=== PATIENT | female | born 1995 | race Caucasian/White ===

== ENCOUNTER 2018-10-23 23:42 | Emergency (ER) | payer SELFPAY ==
[~2018-10-23] VITALS: Ht 165.1 cm; Wt 49.9 kg
[~2018-10-23 23:42] MED LIST: LAMICTAL25 MG PO; MOTRIN600 MG PO; PHENERGAN12.5 M1 PO; ULTRAM50 MG PO
[2018-10-24] MEDS ORDERED: BROMFED DM COU118 M2 PO (00:47)
[2018-10-24] MEDS ORDERED: MEDROL DOSEPAK4 MG PO (00:47)
== END 2018-10-24 01:14 | disposition home or self-care (01) ==
LOC: ED 23:42
DX: J40 Bronchitis, not specified as acute or chronic (principal)

== ENCOUNTER 2018-12-21 22:07 | Emergency (ER) | payer SELFPAY ==
[~2018-12-21] VITALS: Ht 165.1 cm; Wt 52.2 kg
--- NOTE | ~2018-12-21 | EKG ---
[place], [place] ELECTROCARDIOGRAM REPORT NAME: TUAN WEINSTEIN UNIT #: [id number] ROOM: DOCTOR: EPIPHANY DRAFT REPORT BIRTHDATE: [birth year] [facility] Test Date: 2018-12-22 Test Time: 14:14:59 Pat Name: TUAN WEINSTEIN Department: Room: Gender: F Structural Designer: Stephanie Padron : 1995 Requested By: MARYCRUZ CHAPIN Order Number: [id number] Reading MD: Martell Brown MD Measurements Intervals [place] Rate: 60 P: 62 VT: 107 QRS: 75 QRSD: 81 T: 70 QT: 389 QTc: 389 Interpretive Statements Sinus rhythm Short VT interval Electronically Signed On 12-24-2018 7:13:52 PDT by Martell Brown MD CM:EKGRPT:ELECTROCARDIOGRAM REPORT [id number] MARYCRUZ CHAPIN MD EPIPHANY DRAFT REPORT MARYCRUZ CHAPIN MD
[~2018-12-21 22:07] MED LIST changes: +BROMFED DM COU118 M2 PO; +MEDROL DOSEPAK4 MG PO
[2018-12-21 22:59] LABS: BASO % 0.4 % (0.0-1.0); EOS # 0.1 10*3/uL (0.0-0.4); EOS % 1.1 % (1.0-4.0); HEMATOCRIT 42.4 % (37.0-47.0); LYMPH # 2.4 10*3/uL (1.3-4.4); LYMPH % 29.6 % (27.0-41.0); MEAN CELL VOLUME 92.8 fl (81.0-99.0); MEAN CORPUSCULAR HGB 30.6 pg (27.0-31.0); MEAN PLATELET VOLUME 11.7 fl (9.6-12.3); MONO # 0.4 10*3/uL (0.1-1.0); MONO % 5.3 % (3.0-9.0); NEUT # 5.1 10*3/uL (2.3-7.9); NEUT % 63.5 % (47.0-73.0); PLATELET COUNT AUTOMATED 226 10*3/uL (130-400); RED BLOOD COUNT 4.57 10*6/uL (4.10-5.10); RED CELL DISTRI WIDTH 12.9 % (0-14.5)
[2018-12-21 23:15] LABS: BILIRUBIN NEGATIVE (NEGATIVE); BLOOD NEGATIVE (NEGATIVE); CLARITY CLEAR (CLEAR); COLOR YELLOW (YELLOW); GLUCOSE NEGATIVE (NEGATIVE); KETONE NEGATIVE (NEGATIVE); LEUKO ESTERASE TRACE (NEGATIVE); NITRITE NEGATIVE (NEGATIVE); UROBILINOGEN 0.2 E.U./dl (0.2-1.0)
[2018-12-21 23:19] LABS: ALBUMIN 3.6 gm/dl (3.1-4.5); ALKALINE PHOSPHATASE 73 U/L (45-117); BUN 5 mg/dl (7-24); CHLORIDE 108 mmol/L (98-107); CREATININE 0.69 mg/dL (0.55-1.02); POTASSIUM 3.8 mmol/L (3.5-5.1); SGOT/AST 15 IU/L (3-35); SGPT/ALT 17 U/L (12-78); SODIUM 143 mmol/L (136-145); TOTAL PROTEIN 7.1 gm/dL (6.4-8.2)
[2018-12-21 23:24] LABS: URINE AMPHETAMINES < 1000 (1000ng/ml); URINE BARBITURATES < 200 (200ng/ml); URINE BENZODIAZEPINES > 200 (200ng/ml); URINE CANNABINOIDS (THC) < 50 (50ng/ml); URINE COCAINE < 300 (300ng/ml); URINE METHADONE < 300 (300ng/ml); URINE OPIATES < 300 (300ng/ml)
[2018-12-21 23:26] LABS: URINE PHENCYCLIDINE < 25 (25ng/ml)
[2018-12-21 23:26] LABS: ACETAMINOPHEN (TYLENOL) < 5.0 ug/ml (10-30); ETHYL ALCOHOL < 3.0 mg/dl (<3)
[2018-12-21 23:29] LABS: BACTERIA TRACE; EPITHELIAL CELLS 25-30
== END 2018-12-23 00:46 | disposition home health service (06) ==
LOC: ED 22:07
PROVIDERS: Emergency Medicine Emergency Medical Services
DX: F32.9 Major depressive disorder, single episode, unspecified (principal)

== ENCOUNTER 2019-10-23 09:30 | Emergency (ER) | payer OTHER ==
[~2019-10-23] VITALS: Ht 165.1 cm; Wt 53.5 kg
[2019-10-23] MEDS ORDERED: ZITHROMAX250 MG PO (11:43)
[2019-10-23] MEDS ORDERED: ATARAX,VISTARIL50 MG PO (11:44)
== END 2019-10-23 11:50 | disposition home or self-care (01) ==
LOC: ED 09:30
DX: F41.9 Anxiety disorder, unspecified (principal); Z20.2 Contact with and (suspected) exposure to infections with a predominantly sexual mode of transmission; F31.9 Bipolar disorder, unspecified

== ENCOUNTER → 2020-02-27 | Outpatient (CLI) | payer OTHER ==
[~2020-02-27] MED LIST changes: +ATARAX,VISTARIL50 MG PO; +ZITHROMAX250 MG PO
== END ==
LOC: US 08:30
DX: N63.10 Unspecified lump in the right breast, unspecified quadrant (principal)

== ENCOUNTER 2020-08-29 15:59 | Emergency (ER) | payer OTHER ==
[~2020-08-29] VITALS: Wt 53.5 kg
== END 2020-08-29 18:38 | disposition short-term general hospital (02) ==
LOC: ED 15:59
DX: S02.831A Fracture of medial orbital wall, right side, initial encounter for closed fracture (principal); F17.200 Nicotine dependence, unspecified, uncomplicated; W18.39XA Other fall on same level, initial encounter; Y93.89 Activity, other specified; Y92.89 Other specified places as the place of occurrence of the external cause; Y99.8 Other external cause status

== ENCOUNTER 2020-09-11 21:15 | Emergency (ER) | payer OTHER ==
[~2020-09-11] VITALS: Ht 165.1 cm; Wt 53.5 kg
== END 2020-09-12 00:09 | disposition home or self-care (01) ==
LOC: ED 21:15
DX: S00.83XA Contusion of other part of head, initial encounter (principal); Y08.89XA Assault by other specified means, initial encounter; Y93.89 Activity, other specified; Y92.89 Other specified places as the place of occurrence of the external cause; Y99.8 Other external cause status

== ENCOUNTER 2020-09-24 03:34 | Emergency (ER) | payer OTHER ==
[~2020-09-24] VITALS: Ht 170.1 cm; Wt 59.0 kg
== END 2020-09-24 04:54 | disposition short-term general hospital (02) ==
LOC: ED 03:34
DX: S81.831A Puncture wound without foreign body, right lower leg, initial encounter (principal); W34.09XA Accidental discharge from other specified firearms, initial encounter; Y93.89 Activity, other specified; Y92.89 Other specified places as the place of occurrence of the external cause; Y99.8 Other external cause status

== ENCOUNTER 2021-03-27 13:31 | Emergency (ER) | payer OTHER ==
[~2021-03-27] VITALS: Ht 165.1 cm; Wt 54.9 kg
[2021-03-27] MEDS ORDERED: PROVENTIL HFA6.7 GM INH (14:35)
[2021-03-27] MEDS ORDERED: AMOXICILLIN500 M2 PO (14:35)
== END 2021-03-27 14:38 | disposition home or self-care (01) ==
LOC: ED 13:31
DX: O99.511 Diseases of the respiratory system complicating pregnancy, first trimester (principal); J06.9 Acute upper respiratory infection, unspecified; Z3A.01 Less than 8 weeks gestation of pregnancy

== ENCOUNTER 2022-02-21 21:30 | Emergency (ER) | payer OTHER ==
[~2022-02-21] VITALS: Ht 165.1 cm; Wt 59.0 kg
[~2022-02-21 21:30] MED LIST changes: +AMOXICILLIN500 M2 PO; +PROVENTIL HFA6.7 GM INH
== END 2022-02-21 22:04 | disposition home or self-care (01) ==
LOC: ED 21:30
DX: K21.9 Gastro-esophageal reflux disease without esophagitis (principal)

== ENCOUNTER 2022-04-30 17:33 | Emergency (ER) | payer OTHER ==
[~2022-04-30] VITALS: Wt 49.9 kg
[2022-04-30 18:12] LABS: BASO % 0.4 % (0.0-1.0); EOS # 0.1 10*3/uL (0.0-0.4); EOS % 1.2 % (1.0-4.0); HEMATOCRIT 42.5 % (37.0-47.0); LYMPH # 1.4 10*3/uL (1.3-4.4); LYMPH % 13.8 % (27.0-41.0); MEAN CELL VOLUME 89.9 fl (81.0-99.0); MEAN CORPUSCULAR HGB CONC 33.4 g/dl (33.0-37.0); MEAN PLATELET VOLUME 11.3 fl (9.6-12.3); MONO # 0.5 10*3/uL (0.1-1.0); MONO % 4.8 % (3.0-9.0); NEUT # 8.1 10*3/uL (2.3-7.9); NEUT % 79.6 % (47.0-73.0); PLATELET COUNT AUTOMATED 252 10*3/uL (130-400); RED BLOOD COUNT 4.73 10*6/uL (4.10-5.10); RED CELL DISTRI WIDTH 12.7 % (0-14.5); WHITE BLOOD COUNT 10.1 10*3/uL (4.8-10.8)
[2022-04-30 18:29] LABS: ALKALINE PHOSPHATASE 70 U/L (45-117); BUN 12 mg/dl (7-24); CHLORIDE 109 mmol/L (98-107); CREATININE 0.74 mg/dL (0.55-1.02); POTASSIUM 4.1 mmol/L (3.5-5.1); SGOT/AST 13 IU/L (3-35); SGPT/ALT 13 U/L (12-78); SODIUM 143 mmol/L (136-145); TOTAL PROTEIN 7.3 gm/dL (6.4-8.2)
[2022-04-30 18:49] LABS: BETA-HCG, QUANT < 1.0 mIU/mL (1-3)
== END 2022-04-30 19:04 | disposition home or self-care (01) ==
LOC: ED 17:33
PROVIDERS: Student in an Organized Health Care Education/Training Program
DX: B34.9 Viral infection, unspecified (principal); Z20.822 Contact with and (suspected) exposure to COVID-19

== ENCOUNTER 2023-11-08 19:54 | Emergency (ER) | payer SELFPAY ==
[~2023-11-08] VITALS: Ht 165.1 cm; Wt 54.4 kg
[2023-11-08] MEDS ORDERED: diphenhydrAMINE hydrochloride 50 MG/ML VIAL IV ONE (21:10)
[2023-11-08] MEDS ORDERED: Dexamethasone Sodium Phospha 20 MG/5 ML VIAL IV ONE (21:10)
[2023-11-08] MEDS ORDERED: SODIUM CHLORIDE 0.9% 1,000 ML IV ONE (21:10)
[2023-11-08] MEDS ORDERED: Ketorolac Tromethamine 30 MG/ML VIAL IV ONE ×2 (21:10→22:15)
[2023-11-08] MEDS ORDERED: Ondansetron Hydrochloride 4 MG/2 ML VIAL IV ONE (22:15)
== END 2023-11-08 23:04 | disposition home or self-care (01) ==
LOC: ED 19:54
DX: S06.0X0A Concussion without loss of consciousness, initial encounter (principal); S01.81XA Laceration without foreign body of other part of head, initial encounter; F31.9 Bipolar disorder, unspecified; W22.8XXA Striking against or struck by other objects, initial encounter; Y93.89 Activity, other specified; Y92.89 Other specified places as the place of occurrence of the external cause; Y99.8 Other external cause status

== ENCOUNTER → 2025-08-05 | Outpatient (CLI) | payer OTHER ==
[2025-08-05 11:39] LABS: MEAN CELL VOLUME 90.9 fl (81.0-99.0); MEAN CORPUSCULAR HGB 29.9 pg (27.0-31.0); MEAN PLATELET VOLUME 11.7 fl (9.6-12.3); NUCLEATED RED BLOOD CELL 0.0 % (0.0-0.0); NUCLEATED RED BLOOD CELL 0.0 10*3/uL (0.0-0.0); PLATELET COUNT AUTOMATED 240.0 10*3/uL (130-400); RED CELL DISTRI WIDTH 13.1 % (0-14.5)
[2025-08-05 12:01] LABS: BUN 7 mg/dl (9-23); LDL CHOLESTEROL 69 mg/dL (9-159)
[2025-08-05 12:04] LABS: SGPT/ALT < 7 U/L (5-49)
[2025-08-05 12:10] LABS: VITAMIN D, 25-HYDROXY 44.6 ng/mL (30-100)
== END | disposition home or self-care (01) ==
LOC: LAB 11:00
PROVIDERS: ATTEND Family Medicine
DX: E55.9 Vitamin D deficiency, unspecified (principal); R07.9 Chest pain, unspecified; E74.00 Glycogen storage disease, unspecified; F41.1 Generalized anxiety disorder; Z00.00 Encounter for general adult medical examination without abnormal findings